=== PATIENT | female | born 1990 | race Asian ===

== ENCOUNTER 2017-04-01 15:39 | Emergency (ER) | payer BC, OTHER ==
[~2017-04-01] VITALS: Ht 165.1 cm; Wt 54.5 kg
[2017-04-01 15:46] VITALS: Ht 165.1 cm; Wt 54.5 kg
[2017-04-01 16:21] LABS: ADD SCAN DIFF NO
[2017-04-01 16:21] LABS: URINE BLOOD (Dip) POC Negative (NEGATIVE)
[2017-04-01 16:25] LABS: BASOPHILS % 0.5 % (0.0-2.0); EOSINOPHILS # 0.3 10^3/ul (0.0-0.5); HEMATOCRIT 38.7 % (37.0-47.0); HEMOGLOBIN 12.6 g/dl (12.0-16.0); LYMPHOCYTES # 2.6 10^3/ul (0.8-2.9); LYMPHOCYTES % 31.8 % (15.0-51.0); MEAN CORPUSCULAR HGB CONC 32.6 g/dl (32.0-37.0); MEAN CORPUSCULAR VOLUME 95.3 fl (82.0-101.0); MEAN PLATELET VOLUME 11.3 fl (7.4-10.4); MONOCYTE # 0.6 10^3/ul (0.3-0.9); MONOCYTES % 7.2 % (0.0-11.0); NEUTROPHIL # 4.6 10^3/ul (1.6-7.5); NEUTROPHILS % 56.3 % (39.0-77.0); PLATELET COUNT 216 10^3/UL (140-415); RED BLOOD COUNT 4.06 10^6/ul (4.20-5.40); RED CELL DISTRIBUTION WIDTH 11.8 % (11.5-14.5); WHITE BLOOD COUNT 8.2 10^3/ul (4.8-10.8)
--- NOTE | 2017-04-01 16:38 | RADRPT ---
PROCEDURE: Chest Radiograph. CLINICAL INDICATION: Syncope TECHNIQUE: Single frontal chest radiograph. COMPARISON: None available FINDINGS: The cardiomediastinal silhouette is within normal limits. No infiltrate or effusion is seen. Th e bones are intact. IMPRESSION: 1. Unremarkable chest radiograph. RPTAT: KK .Juan Daniel Butterfield MD, Date Time Electronically viewed and signed by .Juan Daniel Butterfield MD, on 04/01/2017 16:38 .B/
[2017-04-01 17:06] VITALS: BP 106/78; PULSE 78; RESP 18; TEMP 98.4
--- NOTE | 2017-04-01 17:13 | ERD ---
ER Documentation Chief Complaint Date/Time DATE: 04/01/17 TIME: 17:07 Chief Complaint syncope while watching procedure; minor head injury; code green HPI 26-year-old female brought in to the ER status post syncopal event. She was in the operating room watching a surgery for about half an hour. She states that she felt like she needed to use the restroom so as soon as she started walking out the door she felt lightheaded and passed out. Her witnesses, she did hit her head on the wall, and regained consciousness within seconds. She denies any history similar to this. Currently she denies any headache, vision disturbance, nausea, vomiting. She has no back pain. She denies any chest pain , palpitations, or shortness of breath. LMP was about 3 weeks ago. ROS All systems reviewed and are negative except as per history of present illness. PMhx/Soc Medical and Surgical Hx: pt denies Medical Hx, pt denies Surgical Hx Hx Alcohol Use: No Hx Substance Use: No Hx Tobacco Use: No Smoking Status: Never smoker FmHx Family History: No coronary disease, No other (No family history of sudden cardiac or early heart disease) Physical Exam Vitals Vital Signs Date Time Temp Pulse Resp B/P Pulse Ox O2 Delivery O2 Flow Rate FiO2 04/01/17 17:06 98.4 78 18 106/78 100 Room Air 04/01/17 17:04 98.4 66 104/66 64 108/72 78 106/70 04/01/17 15:46 97.7 94 18 100/51 97 Physical Exam Const: Well-appearing, no apparent distress Head: Atraumatic, nontender to palpation, no facial trauma Eyes: Normal Conjunctiva, PERRLA, EOMI ENT: Normal External Ears, Nose and Mouth. Neck: Full range of motion..~ No meningismus. No C-spine tenderness to palpation Resp: Clear to auscultation bilaterally. No chest wall tenderness to palpation Cardio: Regular rate and rhythm, no murmurs Abd: Soft, non tender, non distended. Normal bowel sounds Skin: No petechiae or rashes Back: No midline or flank tenderness Ext: No cyanosis, or edema Neur: Awake and alert and oriented 3, cranial nerves intact, strength and sensations intact in all 4 extremities, normal steady gait, normal speech Psych: Normal Mood and Affect Result Diagram: 04/01/17 1600 Results 24 hrs Laboratory Tests Test 04/01/17 15:42 04/01/17 16:00 04/01/17 16:25 Bedside Glucose 99mg/dL White Blood Count 8.210^3/ul Red Blood Count 4.0610^6/ul Hemoglobin 12.6g/dl Hematocrit 38.7% Mean Corpuscular Volume 95.3fl Mean Corpuscular Hemoglobin 31.0pg Mean Corpuscular Hemoglobin Concent 32.6g/dl Red Cell Distribution Width 11.8% Platelet Count 56880^3/UL Mean Platelet Volume 11.3fl Neutrophils % 56.3% Lymphocytes % 31.8% Monocytes % 7.2% Eosinophils % 4.0% Basophils % 0.5% Nucleated Red Blood Cells % 0.0/100WBC Neutrophils # 4.610^3/ul Lymphocytes # 2.610^3/ul Monocytes # 0.610^3/ul Eosinophils # 0.310^3/ul Basophils # 0.010^3/ul Nucleated Red Blood Cells # 0.010^3/ul Bedside Urine pH (LAB) 7.0 Bedside Urine Protein (LAB) 1+ Bedside Urine Glucose (UA) Negative Bedside Urine Ketones (LAB) Negative Bedside Urine Blood Negative Bedside Urine Nitrite (LAB) Negative Bedside Urine Leukocyte Esterase (L Negative Procedures/MDM EKG: Rate/Rhythm: Sinus bradycardia at 58 bpm QRS, ST, T-waves: Intervals normal, no changes consistent w/ acute ischemia Impression: No evidence of ischemia or arrhythmia Blood sugar within normal limits CBC normal MDM: The patients vitals are within normal limits and labs are unremarkable. The ECG did not show any concerning abnormalities. I have a low suspicion for an arrhythmia, acute coronary syndrome, PE or a CVA or intracranial hemorrhage. Etiology for syncope is unknown but likely benign. Patient's syncopal symptoms have stabilized while in the department and are suitable for outpatient follow up. I advised follow up with primary care physician in 1-2 days. Return precautions were discussed at bedside. Departure Diagnosis: Primary Impression: Syncope Syncope type: unspecified Qualified Code: R55 - Syncope, unspecified syncope type Condition: Stable Patient Instructions: Syncope, Unk Cause Referrals: Your Primary Care Doctor Additional Instructions: Follow up with your primary care doctor in 1-2 days. If any of your symptoms worsen, return to the ER immediately for reevaluation. JACKSON VIDAL MD Apr 01, 2017 17:13
== END 2017-04-01 17:06 | disposition home or self-care (01) ==
LOC: E/R 15:39 → FTE 17:06
DX: R55 Syncope and collapse (principal)
CPT/HCPCS: 71010; 81003; 82962; 85025; 93005